=== PATIENT | male | born 1995 | race Two or more races ===

== ENCOUNTER 2017-12-29 15:05 | Observation (INO) | payer OTHER ==
[~2017-12-29] VITALS: Ht 185.4 cm; Wt 101.2 kg
[2017-12-29] MEDS ORDERED: LR(*) 1000 ML BAG 1,000 ML IV ONE (15:13)
[2017-12-29] MEDS ORDERED: ONDANSETRON 4 MG/2 ML VIAL IVP ONE (15:15)
[2017-12-29] MEDS ORDERED: PANTOPRAZOLE SOD 40 MG IV VIAL IVP ONE (15:15)
--- NOTE | 2017-12-29 15:32 | ER Report ---
History and Physical Time Seen By MD: 15:31 Hx. of Stated Complaint: Pt ate really spicy food yesterday and is having some diarrhea and "stomach burn." HPI/ROS 22 year old male ate spicy food llast night today c/o nausea and midepigastric pain has been taking [employer] Whey bolic extreme 60 power supplement stopped that 2 days ago is taking a protein powder before he works out now Allergies: Coded Allergies: No Known Drug Allergies (Unverified , 12/29/17) Past Medical/Surgical History No medical history states that he does take a [employer] supplement before working out and changed to supplement 2 days ago to a protein drink Reviewed Nurses Notes: Yes Old Medical Records Reviewed: No Hx Substance Use Disorder: No Hx Alcohol Use: No Family History of: Other Constitutional Vital Sign - Last 24 Hours 12/29/17 12/29/17 12/29/17 12/29/17 15:15 15:16 15:20 15:30 Temp 98.2 Pulse 66 59 Resp 16 B/P (MAP) 136/78 (97) 136/78 125/75 (92) Pulse Ox 95 96 O2 Delivery Room Air 12/29/17 12/29/17 12/29/17 12/29/17 15:35 15:50 16:00 16:05 Pulse 63 53 55 B/P (MAP) 120/88 (99) Pulse Ox 95 97 99 12/29/17 12/29/17 12/29/17 12/29/17 16:30 16:35 16:40 16:55 Pulse 64 62 62 B/P (MAP) 140/87 (104) Pulse Ox 98 100 98 12/29/17 12/29/17 12/29/17 12/29/17 17:30 17:40 17:55 18:00 Pulse 71 B/P (MAP) 133/79 (97) 131/80 (97) Pulse Ox 100 100 12/29/17 18:10 Pulse 59 Pulse Ox 100 Intake and Output 12/29/17 12/29/17 12/30/17 15:00 23:00 07:00 Intake Total 1000 ml Balance 1000 ml Physical Exam 22-year-old male alert and oriented mild distress HEENT head normocephalic/ atraumatic tympanic membranes are non-reddened throat is non-reddened neck is supple no JVD heart rate is regular no murmurs rubs or gallops lungs are clear to auscultation abdomen is soft mild ane midepigastric bowel sounds 4 quadrants moves all extremities no peripheral edema Medical Decision Making Data Points Result Diagram: 12/29/17 1530 12/29/17 1530 Laboratory Hematology Test 12/29/17 15:14 12/29/17 15:30 Urine Color Straw Urine Clarity Clear Urine pH 7.0 pH (4.8-9.5) Urine Specific [place] 1.014 Urine Protein Negative mg/dL (NEGATIVE) Urine Glucose (UA) Negative mg/dL (NEGATIVE) Urine Ketones Negative mg/dL (NEGATIVE) Urine Blood Negative (NEGATIVE) Urine Nitrite Negative (NEGATIVE) Urine Bilirubin Negative (NEGATIVE) Urine Urobilinogen Negative mg/dL (0.2-1.9) Urine Leukocyte Esterase Negative (NEGATIVE) Urine RBC <1 /HPF (0-2/HPF) Urine WBC None /HPF (0-5/HPF) Urine Squamous Epithelial Cells None /LPF (</=FEW) Urine Bacteria Negative /HPF (NONE-FEW) Urine Mucus None /HPF (NONE-FEW) Urine Opiates Screen Negative Urine Barbiturates Screen Negative Ur Tricyclic Antidepressants Screen Negative Urine Phencyclidine Screen Negative Urine Amphetamines Screen Negative Urine Benzodiazepines Screen Negative Urine Cocaine Screen Negative Urine Cannabinoids Screen Negative Red Blood Count 5.50 M/uL (4.00-5.60) Mean Corpuscular Volume 84.8 fL (80.0-96.0) Mean Corpuscular Hemoglobin 28.5 pg (26.0-33.0) Mean Corpuscular Hemoglobin Concent 33.6 g/dL (32.0-36.0) Red Cell Distribution Width 14.1 % (11.5-14.5) Mean Platelet Volume 9.1 fL (7.2-11.1) Neutrophils (%) (Auto) 56.0 % (39.4-72.5) Lymphocytes (%) (Auto) 33.6 % (17.6-49.6) Monocytes (%) (Auto) 6.4 % (4.1-12.4) Eosinophils (%) (Auto) 2.8 % (0.4-6.7) Basophils (%) (Auto) 1.2 % (0.3-1.4) Nucleated RBC Relative Count (auto) 0.0 /100WBC Neutrophils # (Auto) 3.3 K/uL (2.0-7.4) Lymphocytes # (Auto) 2.0 K/uL (1.3-3.6) Monocytes # (Auto) 0.4 K/uL (0.3-1.0) Eosinophils # (Auto) 0.2 K/uL (0.0-0.5) Basophils # (Auto) 0.1 K/uL (0.0-0.1) Nucleated RBC Absolute Count (auto) 0.00 K/uL Sodium Level 142 mmol/L (137-145) Potassium Level 2.5 mmol/L (3.5-5.0) Chloride Level 115 mmol/L (98-107) Carbon Dioxide Level 18 mmol/L (22-30) Blood Urea Nitrogen 16 mg/dl (9-21) Creatinine 0.80 mg/dl (0.66-1.25) Glomerular Filtration Rate Calc > 60.0 Random Glucose 61 mg/dl (75-110) Lactate 1.2 mmol/L (0.7-2.1) Calcium Level 6.1 mg/dl (8.4-10.2) Magnesium Level 1.2 mg/dl (1.7-2.2) Total Bilirubin < 0.1 mg/dl (0.2-1.3) Aspartate Amino Transf (AST/SGOT) 11 U/L (0-35) Alanine Aminotransferase (ALT/SGPT) 29 U/L (0-56) Alkaline Phosphatase 46 U/L (0-126) Total Creatine Kinase 142 U/L (55-170) Total Protein 4.4 gm/dl (6.3-8.2) Albumin 2.3 g/dl (3.5-5.0) Amylase Level 551 U/L (0-110) Lipase 62 U/L (23-300) Thyroid Stimulating Hormone (TSH) 0.93 uIU/ml (0.46-4.68) Serum Alcohol < 10 mg/dl Chemistry Test 12/29/17 15:14 12/29/17 15:30 Urine Color Straw Urine Clarity Clear Urine pH 7.0 pH (4.8-9.5) Urine Specific [place] 1.014 Urine Protein Negative mg/dL (NEGATIVE) Urine Glucose (UA) Negative mg/dL (NEGATIVE) Urine Ketones Negative mg/dL (NEGATIVE) Urine Blood Negative (NEGATIVE) Urine Nitrite Negative (NEGATIVE) Urine Bilirubin Negative (NEGATIVE) Urine Urobilinogen Negative mg/dL (0.2-1.9) Urine Leukocyte Esterase Negative (NEGATIVE) Urine RBC <1 /HPF (0-2/HPF) Urine WBC None /HPF (0-5/HPF) Urine Squamous Epithelial Cells None /LPF (</=FEW) Urine Bacteria Negative /HPF (NONE-FEW) Urine Mucus None /HPF (NONE-FEW) Urine Opiates Screen Negative Urine Barbiturates Screen Negative Ur Tricyclic Antidepressants Screen Negative Urine Phencyclidine Screen Negative Urine Amphetamines Screen Negative Urine Benzodiazepines Screen Negative Urine Cocaine Screen Negative Urine Cannabinoids Screen Negative White Blood Count 6.0 k/uL (4.5-11.0) Red Blood Count 5.50 M/uL (4.00-5.60) Hemoglobin 15.7 g/dL (14.0-18.0) Hematocrit 46.7 % (42.0-52.0) Mean Corpuscular Volume 84.8 fL (80.0-96.0) Mean Corpuscular Hemoglobin 28.5 pg (26.0-33.0) Mean Corpuscular Hemoglobin Concent 33.6 g/dL (32.0-36.0) Red Cell Distribution Width 14.1 % (11.5-14.5) Platelet Count 182 K/uL (150-450) Mean Platelet Volume 9.1 fL (7.2-11.1) Neutrophils (%) (Auto) 56.0 % (39.4-72.5) Lymphocytes (%) (Auto) 33.6 % (17.6-49.6) Monocytes (%) (Auto) 6.4 % (4.1-12.4) Eosinophils (%) (Auto) 2.8 % (0.4-6.7) Basophils (%) (Auto) 1.2 % (0.3-1.4) Nucleated RBC Relative Count (auto) 0.0 /100WBC Neutrophils # (Auto) 3.3 K/uL (2.0-7.4) Lymphocytes # (Auto) 2.0 K/uL (1.3-3.6) Monocytes # (Auto) 0.4 K/uL (0.3-1.0) Eosinophils # (Auto) 0.2 K/uL (0.0-0.5) Basophils # (Auto) 0.1 K/uL (0.0-0.1) Nucleated RBC Absolute Count (auto) 0.00 K/uL Glomerular Filtration Rate Calc > 60.0 Lactate 1.2 mmol/L (0.7-2.1) Calcium Level 6.1 mg/dl (8.4-10.2) Magnesium Level 1.2 mg/dl (1.7-2.2) Total Bilirubin < 0.1 mg/dl (0.2-1.3) Aspartate Amino Transf (AST/SGOT) 11 U/L (0-35) Alanine Aminotransferase (ALT/SGPT) 29 U/L (0-56) Alkaline Phosphatase 46 U/L (0-126) Total Creatine Kinase 142 U/L (55-170) Total Protein 4.4 gm/dl (6.3-8.2) Albumin 2.3 g/dl (3.5-5.0) Amylase Level 551 U/L (0-110) Lipase 62 U/L (23-300) Thyroid Stimulating Hormone (TSH) 0.93 uIU/ml (0.46-4.68) Serum Alcohol < 10 mg/dl Toxicology Test 12/29/17 15:14 12/29/17 15:30 Urine Opiates Screen Negative Urine Barbiturates Screen Negative Ur Tricyclic Antidepressants Screen Negative Urine Phencyclidine Screen Negative Urine Amphetamines Screen Negative Urine Benzodiazepines Screen Negative Urine Cocaine Screen Negative Urine Cannabinoids Screen Negative Serum Alcohol < 10 mg/dl Urinalysis Test 12/29/17 15:14 Urine Color Straw Urine Clarity Clear Urine pH 7.0 pH (4.8-9.5) Urine Specific [place] 1.014 Urine Protein Negative mg/dL (NEGATIVE) Urine Glucose (UA) Negative mg/dL (NEGATIVE) Urine Ketones Negative mg/dL (NEGATIVE) Urine Blood Negative (NEGATIVE) Urine Nitrite Negative (NEGATIVE) Urine Bilirubin Negative (NEGATIVE) Urine Urobilinogen Negative mg/dL (0.2-1.9) Urine Leukocyte Esterase Negative (NEGATIVE) Urine RBC <1 /HPF (0-2/HPF) Urine WBC None /HPF (0-5/HPF) Urine Squamous Epithelial Cells None /LPF (</=FEW) Urine Bacteria Negative /HPF (NONE-FEW) Urine Mucus None /HPF (NONE-FEW) EKG/Imaging Imaging FACILITY: [facility] PATIENT NAME: Nabeel Ward : 1995 MR: [id number] V: [id number] EXAM DATE: ORDERING PHYSICIAN: MANE KASPER TECHNOLOGIST: Location: [facility] Patient: Nabeel Ward : 1995 Visit/Account:[id number] Date of Sevice: 12/29/2017 CT abdomen and pelvis with IV contrast Indication: Abdominal pain. Comparison: None available. . Technique: Axial CT images were obtained through the abdomen and pelvis during injection of nonionic iodinated intravenous contrast. Reformatted coronal and sagittal images were also obtained. One of the following dose optimization techniques was utilized in the performance of this exam: Automated exposure control; adjustment of the mA and/ or kV according to the patient's size; or use of an iterative reconstruction technique. Specific details can be referenced in the facility's radiology CT exam operational policy. Contrast: 75 ml of Isovue-370 IV contrast. Findings: Lower lung mercado: Limited views lower lung field are unremarkable. Liver: No focal parenchymal abnormality of the liver. Biliary: Gallbladder appears unremarkable as well as the intra and extra hepatic biliary system. Pancreas: Normal appearance. Spleen: Normal appearance. Adrenal glands: Unremarkable. Kidneys / retroperitoneum: No evidence of nephrolithiasis or hydronephrosis. No focal normality. Bowel / peritoneum / mesenteries: Visualized gastrointestinal tract, including the appendix, within normal limits. Stomach is unremarkable. No free air, free fluid, fluid collections, areas of inflammation. Tiny umbilical hernia containing fat. Lymph node assessment: No pathologic adenopathy identified. Pelvic structures: Appear unremarkable. Vessels: No significant atherosclerotic calcifications seen throughout a nonaneurysmal abdominal aorta and branches. Musculoskeletal / Body wall: No acute or aggressive osseous abnormality. IMPRESSION: 1. No acute intra-abdominal abnormality Report Dictated By: Warren Covarrubias at 12/29/2017 5:19 PM Report E-Signed By: Warren Covarrubias at 12/29/2017 5:25 PM WSN:[id number] ED Course/Re-evaluation ED Course iN emergency room did order 40 of Protonix be given IV for Zofran to be given IV 40 of potassium IV magnesium 2 g IV immediately did receive normal saline IV fluids was pain free when leaving department to be admitted upstairs I did talk to Dr. Koch hospitalist to admit this patient Procedure nail right ring finger removed , digital block after cleaned with betadyne 2 cc 1% lido, good anesthesia nail easily removed, was crushed 30 days ago and nail half removed Decision to Disposition Date: Dec 29, 2017 Decision to Disposition Time: 15:52 Depart Departure Latest Vital Signs Vital Signs Date Time Temp Pulse Resp B/P (MAP) Pulse Ox O2 Delivery O2 Flow Rate FiO2 12/29/17 18:10 59 100 12/29/17 18:00 131/80 (97) 12/29/17 15:16 98.2 16 Room Air Impression: Primary Impression: Gastritis Additional Impressions: Pancreatitis Hypokalemia Hypomagnesemia Fingernail injury Condition: Improved Disposition: Admitted from ER Problem Qualifiers MANE KASPER Dec 29, 2017 15:32
[2017-12-29 15:46] LABS: PLATELET COUNT, AUTOMATED 182 K/uL (150-450)
[2017-12-29] MEDS ORDERED: ONDA4TAB PO (15:52)
[2017-12-29] MEDS ORDERED: FAMO20TA28 PO (15:52)
[2017-12-29] MEDS ORDERED: HYDR-4309 PO (16:05)
[2017-12-29] MEDS: KCL (*) 20 MEQ/100 ML PREMIX 100 ML IV SCH ×2 (16:25→19:18)
--- NOTE | 2017-12-29 16:32 | EKG ---
FACILITY: [facility] [place] PATIENT NAME: NEGAR KRISHNAN : [id number] MR: [id number] V: [id number] EXAM DATE: ORDERING PHYSICIAN: MANE KASPER TECHNOLOGIST: ROSANGELA Gonzalez Reason : LOW POTASSIUM Blood Pressure : / mmHG Vent. Rate : 057 BPM Atrial Rate : 057 BPM P-R Int : 150 ms QRS Dur : 090 ms QT Int : 410 ms P-R-T Axes : 068 067 057 degrees QTc Int : 399 ms Sinus bradycardia Otherwise normal ECG No previous ECGs available Confirmed by MARIA VICTORIA CHAVEZ ([id number]) on 12/29/2017 7:34:25 PM Referred By: MAJO Confirmed By:MARIA VICTORIA CHAVEZ
[2017-12-29] MEDS ORDERED: NS 0.9% 20 ML SDV 40 ML ONE (16:34)
[2017-12-29] MEDS ORDERED: IOPAMIDOL 76% 75 ML INFUS BTL 75 ML ONE (16:34)
--- NOTE | 2017-12-29 17:30 | RADIOLOGY IMAGING REPORT ---
FACILITY: [facility] [place] PATIENT NAME: Nabeel Ward : 1995 MR: [id number] V: [id number] EXAM DATE: ORDERING PHYSICIAN: MANE KASPER TECHNOLOGIST: Location: [facility] Patient: Nabeel Ward : 1995 Visit/Account:[id number] Date of Sevice: 12/29/2017 CT abdomen and pelvis with IV contrast Indication: Abdominal pain. Comparison: None available. . Technique: Axial CT images were obtained through the abdomen and pelvis during injection of nonioni c iodinated intravenous contrast. Reformatted coronal and sagittal images were also obtained. One of the following dose optimization techniques was utilized in the performance of this exam: Autom ated exposure control; adjustment of the mA and/or kV according to the patient's size; or use of an i terative reconstruction technique. Specific details can be referenced in the facility's radiology C T exam operational policy. Contrast: 75 ml of Isovue-370 IV contrast. Findings: Lower lung mercado: Limited views lower lung field are unremarkable. Liver: No focal parenchymal abnormality of the liver. Biliary: Gallbladder appears unremarkable as well as the intra and extra hepatic biliary system. Pancreas: Normal appearance. Spleen: Normal appearance. Adrenal glands: Unremarkable. Kidneys / retroperitoneum: No evidence of nephrolithiasis or hydronephrosis. No focal normality. Bowel / peritoneum / mesenteries: Visualized gastrointestinal tract, including the appendix, within n ormal limits. Stomach is unremarkable. No free air, free fluid, fluid collections, areas of inflammation. Tiny umbilical hernia containing f at. Lymph node assessment: No pathologic adenopathy identified. Pelvic structures: Appear unremarkable. Vessels: No significant atherosclerotic calcifications seen throughout a nonaneurysmal abdominal aort a and branches. Musculoskeletal / Body wall: No acute or aggressive osseous abnormality. IMPRESSION: 1. No acute intra-abdominal abnormality Report Dictated By: Warren Covarrubias at 12/29/2017 5:19 PM Report E-Signed By: Warren Covarrubias at 12/29/2017 5:25 PM WSN:[id number]
[2017-12-29] MEDS ORDERED: MAGNESIUM SUL* 2 GM/50 ML IVPB 50 ML IVPB ONE (17:45)
--- NOTE | 2017-12-29 19:28 | History & Physical ---
History of Present Illness Chief Complaint Abdominal pain History of Present Illness This patient presented to the emergency room for abdominal pain. He reports the pain started this morning and felt like heartburn. His pain resolved shortly after arriving at the emergency department and having a bowel movement. He denies any nausea, vomiting, or diarrhea. History Problems: (1) No significant medical problems Allergies: Coded Allergies: No Known Drug Allergies (Unverified , 12/29/17) Hx Alcohol Use: No Review of Systems All Systems Reviewed/Normal: Yes, Except as Noted Gastrointestinal: Abdominal Pain Exam Vital Signs Vital Signs Date Time Temp Pulse Resp B/P (MAP) Pulse Ox O2 Delivery O2 Flow Rate FiO2 12/29/17 18:10 59 100 12/29/17 18:00 131/80 (97) 12/29/17 15:16 98.2 16 Room Air Neuro: No Gross deficits Eyes: PERRLA Cardiovascular: Regular Rate and Rhythm Respiratory: Clear to Auscultation GI: Abd Soft and Non-Tender Extremities: No Edema Integumentary: No Cyanosis Medical Decision Making Data Points Result Diagram: 12/29/17 1530 12/29/17 1530 Item Value Date Time Calcium Level 6.1 mg/dl *L 12/29/17 1530 Magnesium Level 1.2 mg/dl L 12/29/17 1530 EKG / Imaging Imaging CT abdomen/pelvis reviewed. Assessment and Plan Problems: (1) Abdominal pain Assessment & Plan: He did present with abdominal pain, but this resolved after a bowel movement in the emergency department. His CT scan did not show any acute pathology. His amylase was elevated, but his lipase was normal. He is currently pain free. (2) Electrolyte abnormality Assessment & Plan: He was found to have a low potassium, low magnesium, and low calcium level. 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 He also has not been using any stimulant supplements. He is scheduled to receive magnesium and potassium overnight. We will repeat his chemistry in the morning. Venous Thromboembolism Antithrombotics Is Pt On Any Antithrombotics?: No Exam Sepsis Risk: No Definite Risk MARIA VICTORIA CHAVEZ DO Dec 29, 2017 19:28
[2017-12-29 19:39] VITALS: BP 137/88
[2017-12-29] MEDS: NS(*) 0.9% 1000 ML BAG 1,000 ML IV PRN ×2 (20:44→22:50)
[2017-12-30 01:37] VITALS: BP 125/98
[2017-12-30 05:47] LABS: PLATELET COUNT, AUTOMATED 158 K/uL (150-450)
[2017-12-30 08:15] VITALS: BP 103/34
[2017-12-30] MEDS ORDERED: FAMO-67 PO (09:10)
--- NOTE | 2017-12-30 10:10 | Hospitalist Depart ---
Discharge Summary Reason for Hosp/Final Diag: (1) Abdominal pain Status: Resolved Hospital Course & Plan: He presented with abdominal pain, but this resolved in the emergency department with Zofran and Protonix. His CT scan did not show any acute pathology. His amylase was elevated, but his lipase was normal. He did well overnight and is pain free. The etiology is unclear, but will have him take famotidine for a week. (2) Electrolyte abnormality Hospital Course & Plan: He was found to have a low potassium, low magnesium, and low calcium level. These have all resolved. He received magnesium and potassium overnight. CMP/Mg in a week. Departure Weight (Pounds): 223 Weight (Ounces): 1.0 Result Diagram: 12/30/1752912/30/17529 Item Value Date Time Magnesium Level 1.2 mg/dl L 12/29/17 1530 Total Creatine Kinase 142 U/L 12/29/17 1530 Thyroid Stimulating Hormone (TSH) 0.93 uIU/ml 12/29/17 1530 Lactate 1.2 mmol/L 12/29/17 1530 Calcium Level 6.1 mg/dl *L 12/29/17 1530 Potassium Level 2.5 mmol/L *L 12/29/17 1530 Chloride Level 115 mmol/L H 12/29/17 1530 Carbon Dioxide Level 18 mmol/L L 12/29/17 1530 Blood Urea Nitrogen 16 mg/dl 12/29/17 1530 Creatinine 0.80 mg/dl 12/29/17 1530 Total Protein 4.4 gm/dl L 12/29/17 1530 Albumin 2.3 g/dl L 12/29/17 1530 Amylase Level 551 U/L H 12/29/17 1530 Total Bilirubin < 0.1 mg/dl L 12/29/17 1530 Aspartate Amino Transf (AST/SGOT) 11 U/L 12/29/17 1530 Alanine Aminotransferase (ALT/SGPT) 29 U/L 12/29/17 1530 Alkaline Phosphatase 46 U/L 12/29/17 1530 Sodium Level 139 mmol/L 12/30/17 0530 Potassium Level 4.0 mmol/L 12/30/17 0530 Chloride Level 105 mmol/L 12/30/17 0530 Carbon Dioxide Level 22 mmol/L 12/30/17 0530 Blood Urea Nitrogen 16 mg/dl 12/30/17 0530 Creatinine 0.90 mg/dl 12/30/17 0530 White Blood Count 6.0 k/uL 12/29/17 1530 White Blood Count 8.2 k/uL 12/30/17 0530 Hemoglobin 15.7 g/dL 12/29/17 1530 Hemoglobin 15.2 g/dL 12/30/17 0530 Platelet Count 158 K/uL 12/30/17 0530 Platelet Count 182 K/uL 12/29/17 1530 Neutrophils (%) (Auto) 56.0 % 12/29/17 1530 Neutrophils (%) (Auto) 48.5 % 12/30/17 0530 Urine Leukocyte Esterase Negative 12/29/17 1514 Urine RBC <1 /HPF 12/29/17 1514 Urine WBC None /HPF 12/29/17 1514 Urine Squamous Epithelial Cells None /LPF 12/29/17 1514 Urine Protein Negative mg/dL 12/29/17 1514 Urine Nitrite Negative 12/29/17 1514 Serum Alcohol < 10 mg/dl 12/29/17 1530 Urine Cannabinoids Screen Negative 12/29/17 1514 Urine Cocaine Screen Negative 12/29/17 1514 Urine Benzodiazepines Screen Negative 12/29/17 1514 Urine Amphetamines Screen Negative 12/29/17 1514 Urine Phencyclidine Screen Negative 12/29/17 1514 Ur Tricyclic Antidepressants Screen Negative 12/29/17 1514 Urine Barbiturates Screen Negative 12/29/17 1514 Urine Opiates Screen Negative 12/29/17 1514 Imaging Abd/Pelvis CT - 1. No acute intra-abdominal abnormality EKG Vent. Rate : 057 BPM Atrial Rate : 057 BPM P-R Int : 150 ms QRS Dur : 090 ms QT Int : 410 ms P-R-T Axes : 068 067 057 degrees QTc Int : 399 ms Sinus bradycardia Otherwise normal ECG No previous ECGs available Confirmed by MARIA VICTORIA CHAVEZ ([id number]) on 12/29/2017 7:34:25 PM Condition: Improved Discharge: Home Discharge Instructions Home Meds Active Scripts Famotidine (FAMOTIDINE) 20 Mg Tablet, 20 MG PO BID for 7 Days, TAB Prov:RUCHI EUGENE MD 12/30/17 Special Instructions: CMP/Mg in a week. Follow up with PCP in 1-2 weeks. Go to the ER for resumption of pain, or vomiting. Venous Thromboembolism Antithrombotics Is Pt On Any Antithrombotics?: No RUCHI EUGENE MD Dec 30, 2017 10:10
[2017-12-30] MEDS ORDERED: INFLUENZA VIRUS VAC 0.5 ML SYR IM ONLY ONE (19:20)
== END 2017-12-30 10:11 | disposition home or self-care (01) ==
LOC: ER 15:09 → INTOOBSV 18:12 → MED 18:12
PROVIDERS: ADMIT Family Medicine; ATTEND Family Medicine
DX: K29.70 Gastritis, unspecified, without bleeding (principal); K85.90 Acute pancreatitis without necrosis or infection, unspecified; E87.6 Hypokalemia; E83.42 Hypomagnesemia; S67.194A Crushing injury of right ring finger, initial encounter; E87.8 Other disorders of electrolyte and fluid balance, not elsewhere classified; R79.89 Other specified abnormal findings of blood chemistry
CPT/HCPCS: 11730; 36415; 74177; 80305; 80320; 81001; 82150; 82306; 82533; 82550; 82652; 83519; 83605; 83690; 83735; 84443; 85025; 93005; 96361; 96365; 96375; 99285; C9113; G0378; J2405; J3475; J3480; J7030; J7050; J7120; Q9967; 82040; 82247; 82310; 82374; 82435; 82565; 82947; 84075; 84132; 84155; 84295; 84450; 84460; 84520